=== PATIENT | male | born 1930 | race Caucasian/White ===

== ENCOUNTER 2017-06-04 08:32 | Emergency (ER) | payer MEDICARE, MEDICAID ==
--- NOTE | 2017-06-04 08:57 | ER Document Report ---
ED General - General Chief Complaint: Chest Pain Stated Complaint: CHEST PAIN Time Seen by Provider: 06/04/17 08:46 Mode of Arrival: Ambulatory Information source: Patient, Relative TRAVEL OUTSIDE OF THE [place] IN LAST 30 DAYS: No - HPI Onset: This morning Quality of pain: No pain Associated symptoms: Nonproductive cough, Shortness of breath Exacerbated by: Denies Relieved by: Denies Similar symptoms previously: No Recently seen / treated by doctor: Yes Notes: Patient is a very functional 86-year-old male who presents with cough and congestion. Patient was seen by his primary care doctor this morning and was told to come to the emergency department. Patient complains of cough, painful deep breaths, fevers to 100. Eating and drinking without difficulty. No known ill contacts. - Related Data Allergies/Adverse Reactions: aspirin Adverse Reaction (Verified 06/04/17 09:23) Past Medical History - General Information source: Patient, Relative - Social History Smoking Status: Never Smoker Family History: Reviewed & Not Pertinent Patient has suicidal ideation: No Patient has homicidal ideation: No - Past Medical History Cardiac Medical History: Reports: Hx Hypertension Denies: Hx Heart Attack Pulmonary Medical History: Denies: Hx Asthma Neurological Medical History: Denies: Hx Cerebrovascular Accident, Hx Seizures Renal/ Medical History: Denies: Hx Peritoneal Dialysis GI Medical History: Denies: Hx Hepatitis, Hx Hiatal Hernia, Hx Ulcer Infectious Medical History: Denies: Hx Hepatitis Past Surgical History: Denies: Hx Open Heart Surgery, Hx Pacemaker Review of Systems - Review of Systems Respiratory: Cough, Hurts to breathe -: Yes All other systems reviewed and negative Physical Exam - Vital signs Vitals: Temp Pulse Resp BP Pulse Ox 98.5 F 97 18 132/55 H 93 06/04/17 08:35 06/04/17 08:35 06/04/17 08:35 06/04/17 08:35 06/04/17 08:35 Interpretation: Normal - General General appearance: Appears well, Alert Notes: Patient ambulated to treatment room without any difficulty. He does not appear to be short of breath. - HEENT Head: Normocephalic, Atraumatic Eyes: Normal Pupils: PERRL - Respiratory Respiratory status: No respiratory distress Chest status: Nontender Breath sounds: Normal Chest palpation: Normal - Cardiovascular Rhythm: Regular Heart sounds: Normal auscultation Murmur: No - Abdominal Inspection: Normal Distension: No distension Bowel sounds: Normal Tenderness: Nontender Organomegaly: No organomegaly - Back Back: Normal, Nontender - Extremities General upper extremity: Normal inspection, Nontender, Normal color, Normal ROM , Normal temperature General lower extremity: Normal inspection, Nontender, Normal color, Normal ROM , Normal temperature, Normal weight bearing. No: Migel's sign - Neurological Neuro grossly intact: Yes Cognition: Normal Orientation: AAOx4 [place] Coma Scale Eye Opening: Spontaneous [place] Coma Scale Verbal: Oriented [place] Coma Scale Motor: Obeys Commands [place] Coma Scale Total: 15 Speech: Normal Motor strength normal: LUE, RUE, LLE, RLE Sensory: Normal - Psychological Associated symptoms: Normal affect, Normal mood - Skin Skin Temperature: Warm Skin Moisture: Dry Skin Color: Normal Course - Re-evaluation Re-evalutation: 06/04/17 09:56 Emergency department workup fairly unremarkable. Slight uptake in white count noted. We will treat for acute bronchitis. Results reviewed with patient and family at bedside. - Vital Signs Vital signs: Temp Pulse Resp BP Pulse Ox 98.5 F 97 25 H 136/63 H 96 06/04/17 08:35 06/04/17 08:35 06/04/17 09:01 06/04/17 09:00 06/04/17 09:01 - Laboratory Result Diagrams: 06/04/17 08:55 06/04/17 08:55 Laboratory results interpreted by me: 06/04/17 06/04/17 08:55 08:55 WBC 17.9 H Hgb 11.3 L Hct 35.0 L MCV 73 L MCH 23.3 L RDW 21.5 H Seg Neuts % (Manual) 88 H Lymphocytes % (Manual) 4 L Abs Neuts (Manual) 15.8 H Sodium 133.1 L Chloride 92 L Carbon Dioxide 32 H - Diagnostic Test Radiology reviewed: Reports reviewed Radiology results interpreted by me: 06/04/17 09:56 Nothing acute per radiologist - EKG Interpretation by Me EKG shows normal: Sinus rhythm Rate: Normal Rhythm: NSR - 98 [place]/QRS: RBBB When compared to previous EKG there are: Previous EKG unavailable Discharge - Discharge Clinical Impression: Acute bronchitis Disposition: HOME, SELF-CARE Instructions: Bronchitis ([facility]) Additional Instructions: Follow-up with your primary care doctor. Return to the emergency department if worse or for any other problems. Prescriptions: Benzonatate [Tessalon Perles 100 mg Capsule] 100 mg PO Q8HP PRN #30 capsule PRN Reason: Cough Azithromycin [Zithromax 250 mg Tablet] 250 mg PO ASDIR PRN #6 tablet PRN Reason:
[2017-06-04 09:19] LABS: HEMOGLOBIN 11.3 g/dL (13.5-17.0); HGB HCT DIFFERENCE -1.1; MEAN CORPUSCULAR HEMOGLOBIN 23.3 pg (27.0-33.4); MEAN CORPUSCULAR HGB CONC 32.1 g/dL (32.0-36.0); MEAN CORPUSCULAR VOLUME 73 fl (80-97); RED BLOOD COUNT 4.82 10^6/uL (4.35-5.55); RED CELL DISTRIBUTION WIDTH 21.5 % (11.5-14.0); WHITE BLOOD COUNT 17.9 10^3/uL (4.0-10.5)
[2017-06-04 09:26] VITALS: BP 136/63
[2017-06-04 09:35] LABS: BASOPHILS % (MANUAL) 1 % (0-2); EOSINOPHILS % (MANUAL) 0 % (0-6); LYMPHOCYTES % (MANUAL) 4 % (13-45); TOTAL CELLS COUNTED 100
[2017-06-04 09:37] LABS: ANISOCYTOSIS 2+; HYPOCHROMASIA 2+; MICROCYTOSIS 2+; POIKILOCYTOSIS 1+; POLYCHROMASIA SLIGHT
[2017-06-04 09:38] LABS: ALANINE AMINOTRANSFERASE 26 U/L (21-72); ALKALINE PHOSPHATASE 103 U/L (38-126); ANION GAP 9 (5-19); ASPARTATE AMINO TRANSFERASE 22 U/L (17-59); BILIRUBIN,DIRECT 0.4 mg/dL (0.0-0.4); BILIRUBIN,TOTAL 0.8 mg/dL (0.2-1.3); BLOOD UREA NITROGEN 11 mg/dL (7-20); CALCIUM 9.5 mg/dL (8.4-10.2); CARBON DIOXIDE 32 mmol/L (22-30); CHLORIDE 92 mmol/L (98-107); GLUCOSE 95 mg/dL (75-110); HELMET CELLS SLIGHT; PLATELET CLUMPS PRESENT; POTASSIUM 4.6 mmol/L (3.6-5.0); SODIUM 133.1 mmol/L (137-145); TARGET CELLS SLIGHT; TEAR DROP CELLS SLIGHT; TOTAL PROTEIN 6.8 g/dL (6.3-8.2)
--- NOTE | 2017-06-04 09:40 | RADIOLOGY REPORT (SQ) ---
EXAM DESCRIPTION: CHEST SINGLE VIEW COMPLETED DATE/TIME: 06/04/2017 9:26 am REASON FOR STUDY: cough COMPARISON: None. NUMBER OF VIEWS: One view. TECHNIQUE: Single frontal radiographic view of the chest acquired. LIMITATIONS: None. FINDINGS: LUNGS AND PLEURA: No opacities, masses or pneumothorax. No pleural effusion. Attenuated bl ood vessels and flattened jelly-diaphragms. MEDIASTINUM AND HILAR STRUCTURES: No masses. HEART AND VASCULAR STRUCTURES: Heart normal in size. Tortuous aorta. BONES: No acute findings. HARDWARE: None in the chest. OTHER: No other significant finding. IMPRESSION: COPD. NO ACUTE RADIOGRAPHIC FINDING IN THE CHEST. TECHNICAL DOCUMENTATION: JOB ID: [id number] [employer]- All Rights Reserved
--- NOTE | 2017-06-04 13:37 | EKG REPORT ---
SEVERITY:- ABNORMAL ECG - SINUS RHYTHM RIGHT BUNDLE BRANCH BLOCK : Confirmed by: Jeni Romero 04-Jun-2017 13:36:40
== END 2017-06-04 10:27 | disposition home or self-care (01) ==
LOC: ER 08:32
DX: J20.9 Acute bronchitis, unspecified (principal); R07.9 Chest pain, unspecified; R05 Cough; R06.02 Shortness of breath; R09.81 Nasal congestion; R50.9 Fever, unspecified
CPT/HCPCS: 36415; 71010; 80053; 84484; 85025; 87040; 93005; 93010; 99285

== ENCOUNTER → 2018-10-24 | Outpatient (CLI) | payer MEDICARE, MEDICAID ==
[2018-10-24 10:31] LABS: ALANINE AMINOTRANSFERASE 22 U/L (21-72); ALBUMIN 4.2 g/dL (3.5-5.0); ALKALINE PHOSPHATASE 90 U/L (38-126); ANION GAP 8 (5-19); ASPARTATE AMINO TRANSFERASE 24 U/L (17-59); BILIRUBIN,DIRECT 0.2 mg/dL (0.0-0.4); BILIRUBIN,TOTAL 0.4 mg/dL (0.2-1.3); BLOOD UREA NITROGEN 14 mg/dL (7-20); CALCIUM 9.6 mg/dL (8.4-10.2); CARBON DIOXIDE 31 mmol/L (22-30); CHLORIDE 97 mmol/L (98-107); CHOLESTEROL 147.91 mg/dL (0-200); GLUCOSE 94 mg/dL (75-110); POTASSIUM 4.8 mmol/L (3.6-5.0); SODIUM 135.5 mmol/L (137-145); TOTAL PROTEIN 6.8 g/dL (6.3-8.2); TRIGLYCERIDES 144 mg/dL (<150)
[2018-10-24 10:42] LABS: DIRECT LDL 78 mg/dL (<100)
== END ==
LOC: OD 09:15
PROVIDERS: ATTEND Internal Medicine
DX: R94.31 Abnormal electrocardiogram [ECG] [EKG] (principal); R06.02 Shortness of breath; I35.1 Nonrheumatic aortic (valve) insufficiency; I35.0 Nonrheumatic aortic (valve) stenosis; I10 Essential (primary) hypertension; I34.0 Nonrheumatic mitral (valve) insufficiency; I36.1 Nonrheumatic tricuspid (valve) insufficiency; I65.23 Occlusion and stenosis of bilateral carotid arteries; R01.1 Cardiac murmur, unspecified
CPT/HCPCS: 36415; 80053; 80061

== ENCOUNTER → 2019-05-09 | Outpatient (CLI) | payer MEDICARE, MEDICAID ==
--- NOTE | 2019-05-09 12:44 | RADIOLOGY REPORT (SQ) ---
EXAM DESCRIPTION: BARIUM SWALLOW ESOPHAGUS COMPLETED DATE/TIME: 05/09/2019 10:11 am REASON FOR STUDY: R13.10 DYSPHAGIA, UNSPECIFIED, K22.5 DIVERTICULUM OF ESOPHAGUS, ACQUIRED R13.10 D YSPHAGIA, UNSPECIFIED K22.5 DIVERTICULUM OF ESOPHAGUS, ACQUIRED COMPARISON: None. TECHNIQUE: Under fluoroscopic guidance, patient ingested effervescent granules followed by thick and thin barium. Fluoroscopic spot images and routine radiographic images acquired and stored on PACS. 12 MM BARIUM TABLET GIVEN: Yes. 10 minutes delay in passage the 12 mm barium tablet across the GE junction proximal to the hiatal her cheryl. LIMITATIONS: None. FLUOROSCOPY TIME: FLUORO TIME: 2.4 minutes of fluoroscopy was used. 18 images saved to PACS. FINDINGS: NEUROMUSCULAR COORDINATION OF SWALLOW: Normal. No aspiration. Moderate cricopharyngeal hy pertrophy. 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 ESOPHAGEAL MOTILITY: Motility in the proximal esophagus is unremarkable. Mild esophageal spasms in t he distal esophagus. ESOPHAGEAL MUCOSA: Normal mucosa without masses or ulceration. GASTRO-ESOPHAGEAL JUNCTION: There is a large fixed 9.3 x 5.3 cm hiatal hernia. Mild gastroesophageal reflux seen. NON-GI TRACT STRUCTURES: No significant finding. OTHER: No other significant finding. IMPRESSION: 1. 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 2. LARGE HIATAL HERNIA WITH MILD GASTROESOPHAGEAL REFLUX. DISTAL ESOPHAGEAL STRICTURE AND SPASM WHI CH DOES DELAY PASSAGE OF A 12 MM BARIUM TABLET FOR APPROXIMATELY 10 MINUTES. COMMENT: Quality ID [id number]: Final reports for procedures using fluoroscopy that document radiation exp osure indices, or exposure time and number of fluorographic images (if radiation exposure indices are not available) TECHNICAL DOCUMENTATION: JOB ID: [id number] [employer]- All Rights Reserved Reading location - IP/workstation name: [email or web address]
== END ==
LOC: RAD 09:11
PROVIDERS: ATTEND Internal Medicine Gastroenterology
DX: K22.5 Diverticulum of esophagus, acquired (principal); K44.9 Diaphragmatic hernia without obstruction or gangrene; K21.9 Gastro-esophageal reflux disease without esophagitis; R13.10 Dysphagia, unspecified
CPT/HCPCS: 74220

== ENCOUNTER → 2019-06-05 | Outpatient (CLI) | payer MEDICARE, MEDICAID ==
--- NOTE | 2019-06-07 | XCELERA REPORT ---
[address] [address] Transthoracic Echocardiogram Report Name: ANA RICARDO Age: 88 yrs Gender: Male : 1930 Patient Status: Outpatient Patient Location: [facility] Study Date: 06/05/2019 10:45 AM Height: 67 in Weight: 127 lb BSA: 1.7 m2 Procedure: A two-dimensional transthoracic echocardiogram with color flow and Doppler was performed. Study Quality: Fair. Reason For Study: SOB PRE OP History: SOB PRE OP. Ordering Physician: ASHLY ARNETT Performed By: Dyana Richards Interpretation Summary The left ventricle is normal in size. There is normal left ventricular wall thickness. LV EF is 65% Left ventricular systolic function is normal. Doppler measurements suggest normal left ventricular diastolic function The left ventricular wall motion is normal. There is no thrombus. There is no ventricular septal defect visualized. The right ventricle is mildly dilated. The right ventricular systolic function is normal. The right atrium is borderline dilated. The interatrial septum is intact with no evidence for an atrial septal defect. There is no Doppler evidence for an interatrial shunt There is mild mitral annular calcification. There is no evidence of mitral valve prolapse. There is no vegetation seen on the mitral valve. There is no mitral valve stenosis. There is a mild amount of mitral regurgitation There is no aortic valvular vegetation. There is mild aortic stenosis There is a peak gradient of 23.4 mm of Hg , and a mean graient of 11.7 mm of Hg. No hemodynamically significant valvular aortic stenosis. There is no LVOT obstruction. There is a mild amount of aortic regurgitation There is no tricuspid stenosis. There is mild pulmonary hypertension by echo There is a moderate amount of tricuspid regurgitation RVSP is 38 to 43 mm of Hg , with RA mean of 5 to 10. There is no pulmonic valvular stenosis. There is a mild amount of pulmonic regurgitation The aortic root is normal size. The inferior vena cava appeared normal and decreased > 50% with respiration (RAP 5-10 mmHg) There is no pericardial effusion. MMode/2D Measurements & Calculations RVDd: 3.8 cm LVIDd: 5.4 cm FS: 34.0 % Ao root diam: 3.3 cm IVSd: 0.63 cm LVIDs: 3.5 cm EDV(Teich): 138.5 ml Ao root area: 8.4 cm2 LVPWd: 0.75 cm ESV(Teich): 52.0 ml EF(Teich): 62.4 % LVOT diam: 2.0 cm LVOT area: 3.1 cm2 Doppler Measurements & Calculations MV E max frida: MV dec slope: Ao V2 max: AI max frida: 63.7 cm/sec 362.5 cm/sec2 241.7 cm/sec 406.3 cm/sec MV A max frida: MV dec time: Ao max PG: AI max P.0 mmHg 61.9 cm/sec 0.18 sec 23.4 mmHg AI dec slope: MV E/A: 1.0 Ao V2 mean: 203.4 cm/sec2 157.4 cm/sec AI P1/2t: 585.1 msec Ao mean P.7 mmHg Ao V2 VTI: 41.8 cm ARRON(I,D): 1.4 cm2 ARRON(V,D): 1.5 cm2 LV V1 max PG: SV(LVOT): 58.5 ml PA V2 max: PI end-d frida: 5.4 mmHg 93.1 cm/sec 113.0 cm/sec LV V1 mean PG: PA max P.5 mmHg 3.5 mmHg LV V1 max: 116.3 cm/sec LV V1 mean: 71.7 cm/sec LV V1 VTI: 19.0 cm TR max frida: 284.7 cm/sec TR max P.5 mmHg Left Ventricle The left ventricle is normal in size. There is normal left ventricular wall thickness. LV EF is 65%. Left ventricular systolic function is normal. Doppler measurements suggest normal left ventricular diastolic function. The left ventricular wall motion is normal. There is no thrombus. There is no ventricular septal defect visualized. Right Ventricle The right ventricle is mildly dilated. The right ventricular systolic function is normal. Atria The right atrium is borderline dilated. The left atrial size is normal. The interatrial septum is intact with no evidence for an atrial septal defect. There is no Doppler evidence for an interatrial shunt. Mitral Valve There is mild mitral annular calcification. There is no evidence of mitral valve prolapse. There is no vegetation seen on the mitral valve. There is no mitral valve stenosis. There is a mild amount of mitral regurgitation. Aortic Valve There is no aortic valvular vegetation. There is mild aortic stenosis. There is a peak gradient of 23.4 mm of Hg , and a mean graient of 11.7 mm of Hg. No hemodynamically significant valvular aortic stenosis. There is no LVOT obstruction. There is a mild amount of aortic regurgitation. Tricuspid Valve There is no tricuspid stenosis. There is mild pulmonary hypertension by echo. There is a moderate amount of tricuspid regurgitation. RVSP is 38 to 43 mm of Hg , with RA mean of 5 to 10. Pulmonic Valve There is no pulmonic valvular stenosis. There is a mild amount of pulmonic regurgitation. Great Vessels The aortic root is normal size. The inferior vena cava appeared normal and decreased > 50% with respiration (RAP 5-10 mmHg). Effusions There is no pericardial effusion. : ASHLY ARNETT Lakshmi
== END ==
LOC: SP 09:53
PROVIDERS: ATTEND Specialist
DX: Z01.810 Encounter for preprocedural cardiovascular examination (principal); R06.02 Shortness of breath
CPT/HCPCS: 93306

== ENCOUNTER → 2019-06-06 | Outpatient (CLI) | payer MEDICARE, MEDICAID ==
[~2019-06-06] MED LIST: REGADENOSON INJ 0.4 MG/5 ML DISP.SYRIN IV ONE
--- NOTE | 2019-06-06 18:44 | DRAGON STRESS TEST REPORT ---
Intravenous Lexiscan Cardiolite stress test using single photon emmision computerized tomography. Date of procedure: 06/06/2019.Ordering Provider: Dr.Lakshmi Arnett. Patient's status: Out Patient. Indication: Shortness of breath, abnormal EKG, and preoperative cardiac risk assessment.. Coronary risk factors: Age, hypertension, history of coronary artery disease, dyslipidemia, and tobacco abuse disorder. Resting EKG: Sinus Rhythm. Right Bundle Branch Block. Stress EKG: No changes of ischemia. The patient had no chest pain or discomfort, and there were no arrhythmias seen. Reason for termination: Protocol. Conclusions: Normal EKG and hemodynamic response to IV Lexiscan. Nuclear data: At rest the patient was given 10.74 millicuries of technetium 99m sestamibi injected intravenously. As per protocol rest non gated SPECT images were obtained. Subsequently the patient was given intravenous Lexiscan at a dose of 0.4 mg in 5 mL intravenously, followed by flush with normal saline. Subsequently the stress dose of 32.1 millicuries of technetium 99m sestamibi was injected intravenously. As per protocol stress gated images were obtained. Nuclear interpretation: Review of images showed that all segments of the myocardium had normal perfusion at rest, and normal perfusion post stress with IV Lexiscan. All segments of the myocardium had normal motion, contraction, and thickening by gated study. T. I D. ratio was normal at 0.64. There is no transient ischemic dilatation of the left ventricle. Computer read rest, and stress left ventricular ejection fraction were 58 %, and 64 %, respectively. Conclusion: 1. There is no scintigraphic evidence of Lexiscan induced myocardial ischemia. 2. There is no scintigraphic evidence of myocardial infarction/scar. Recommendations: Aggressive risk factor modification, and treating the underlying co- morbidities. MTDD
== END ==
LOC: RAD 12:01
PROVIDERS: ATTEND Specialist
DX: Z01.810 Encounter for preprocedural cardiovascular examination (principal); R06.02 Shortness of breath; I10 Essential (primary) hypertension; I25.10 Atherosclerotic heart disease of native coronary artery without angina pectoris; E78.5 Hyperlipidemia, unspecified; Z72.0 Tobacco use; I45.10 Unspecified right bundle-branch block
CPT/HCPCS: 93017; 78452; A9500; J2785; Q9969

== ENCOUNTER 2019-06-21 07:47 | Day surgery (SDC) | payer MEDICARE, MEDICAID ==
[2019-06-15 11:03] LABS: ABSOLUTE BASOPHILS # (AUTO) 0.1 10^3/uL (0.0-0.2); ABSOLUTE EOSINOPHILS # (AUTO) 0.1 10^3/uL (0.0-0.6); ABSOLUTE LYMPHOCYTES (AUTO) 0.8 10^3/uL (0.5-4.7); ABSOLUTE NEUT (AUTO) 4.4 10^3/uL (1.7-8.2); BASOPHILS % (AUTO) 1.2 % (0-2); EOSINOPHILS % (AUTO) 1.5 % (0-6); HEMATOCRIT 38.1 % (37.9-51.0); HEMOGLOBIN 12.6 g/dL (13.5-17.0); LYMPHOCYTES % (AUTO) 12.8 % (13-45); MEAN CORPUSCULAR HEMOGLOBIN 26.9 pg (27.0-33.4); MEAN CORPUSCULAR VOLUME 81 fl (80-97); PLATELET COUNT 457 10^3/uL (150-450); RED BLOOD COUNT 4.68 10^6/uL (4.35-5.55); SEGMENTED NEUTROPHILS % (AUTO) 69.5 % (42-78); TOTAL CELLS COUNTED % (AUTO) 100 %; WHITE BLOOD COUNT 6.3 10^3/uL (4.0-10.5)
[2019-06-15 11:18] LABS: ANION GAP 5 (5-19); BLOOD UREA NITROGEN 16 mg/dL (7-20); CALCIUM 9.5 mg/dL (8.4-10.2); CARBON DIOXIDE 34 mmol/L (22-30); CHLORIDE 97 mmol/L (98-107); GLUCOSE 87 mg/dL (75-110); POTASSIUM 4.6 mmol/L (3.6-5.0)
[~2019-06-21 07:47] MED LIST changes: +CEFAZOLIN SODIUM 1 GM in DEXTROSE 5%-WATER 50 ML IV PRN; +FENTANYL CITRATE INJ/PF 100 MCG/2 ML AMPUL ONE; +HYDROMORPHONE HCL INJ/PF 2 MG/ML AMPULE ONE; +LACTATED RINGERS 1000 ML IV PRN; +MIDAZOLAM 2 MG/2 ML INJ ONE; +PROPOFOL INJ 200 MG/20 ML VIAL IV ONE; -REGADENOSON INJ 0.4 MG/5 ML DISP.SYRIN IV ONE
[2019-06-21] MEDS ORDERED: PHENYLEPHRINE HCL INJ/PF 10 MG/1 ML SDV ONE (08:00)
[2019-06-21] MEDS ORDERED: GLYCOPYRROLATE 1 MG/5 ML VIAL ONE (08:00)
[2019-06-21] MEDS ORDERED: ROCURONIUM BROMIDE INJ 50 MG/5 ML VIAL IV ONE (08:00)
[2019-06-21] MEDS ORDERED: DEXAMETHASONE SOD PHOSPHATE INJ 4 MG/1 ML VIAL ONE (08:00)
[2019-06-21] MEDS ORDERED: ONDANSETRON HCL INJ/PF 4 MG/2 ML SDV ONE (08:00)
[2019-06-21] MEDS ORDERED: OXYCODONE-ACETAMINOPHEN 5-325 MG TABLET PO PRN ×2 (11:49)
[2019-06-21] MEDS ORDERED: FENTANYL CITRATE INJ/PF 100 MCG/2 ML AMPUL IV PRN ×3 (11:49)
[2019-06-21] MEDS ORDERED: ONDANSETRON HCL INJ/PF 4 MG/2 ML SDV IV PRN ×2 (11:49→12:24)
[2019-06-21] MEDS ORDERED: MEPERIDINE HCL/PF INJ 25 MG/1 ML DISP.SYRIN IV PRN (11:49)
[2019-06-21] MEDS ORDERED: DIPHENHYDRAMINE HCL 50 MG/ML VIAL IV PRN (11:49)
[2019-06-21] MEDS ORDERED: MORPHINE SULFATE 10 MG/ML INJ IV PRN (11:49)
--- NOTE | 2019-06-21 12:39 | Operative Report ---
Nonrecallable Operative Report PREOPERATIVE DIAGNOSIS: Zenker's diverticulum POSTOPERATIVE DIAGNOSIS: Zenker's diverticulum OPERATION: Esophagoscopy with Zenker's diverticulectomy SURGEON: WEI LARA HUMAN RESOURCES LEADER: MACKENZIE GUZMAN ANESTHESIA: GA TISSUE REMOVED OR ALTERED: Zenker's diverticulum COMPLICATIONS: None ESTIMATED BLOOD LOSS: 5 cc INTRAOPERATIVE FINDINGS: See dictation PROCEDURE: Patient was brought to the operating room and awake and alert in stable condition placed on the operating table in supine position induced under general anesthesia and intubated after appropriate timeout and site verification the procedure commenced. The Olympus esophagoscope was placed into the posterior pharynx and easily passed down the esophagus to the GE junction it was then slowly withdrawn and examination of the esophagus revealed to be normal at approximately 18 cm we noted the ostia of the diverticulum on the left side of the esophagus it was not filled with food and therefore did not even need irrigation. The scope was then removed. A 56 [place]anese bougie dilator will was placed into the posterior pharynx and down the esophagus for help with maintaining a normal contour of the esophagus. After appropriate prep and drape of the neck a longitudinal incision was made along the edge of the sternocleidomastoid muscle. The platysma muscle was divided with Bovie cautery and we entered the deep cervical fascia which was incised with Bovie cautery until we identified the carotid sheath. The omohyoid muscle was divided with Bovie cautery once this was done we placed a wheat [place] for retraction and identified the thyroid gland which was placed on traction we first identified the recurrent laryngeal nerve and protected that. The thyroid gland was then mobilized slightly medially and inferior thyroid artery was divided between 3-0 silk ligatures. Once this was done we identified the top portion of the esophagus and the diverticulum in the posterior position. An Allis clamp was placed on the apex of the diverticulum to maintain traction. Using blunt dissection using peanut dissector the muscle tissue was dissected away from the diverticulum to we identified the neck of the diverticulum and Temelec's triangle. Then using a tonsil clamp I gently lifted the cricopharyngeus muscle away from the diverticulum and using Bovie cautery divided that muscle. Once this was accomplished we then came across the base of the diverticulum with one firing of the TA 30 stapler with a blue load. This led to a clean secure staple line. We then removed the bougie dilator we placed a Hamilton drain next to the closure and the esophageal bed and brought it out through a stab wound on the left anterior chest wall we then closed the platysma muscle with interrupted 3-0 Vicryl sutures and closed the skin with intracuticular 4-0 Biosyn Steri-Strips completed the procedure estimated blood loss was less than 10 cc sponge needle counts were correct x2 the patient was awakened in the operating extubated transferred recovery in stable condition no complications Mackenzie SORTO was present for the entire procedure help with wound retraction wound closure
[2019-06-21] MEDS ORDERED: ACETAMINOPHEN 1,000 MG/100 ML RTUPB IV ONE (13:37)
[2019-06-21] MEDS ORDERED: FENTANYL CITRATE INJ/PF 100 MCG/2 ML AMPUL ONE (14:14)
[2019-06-21] MEDS: POTASSI CL 20 MEQ/D5-1/2NS 1L 1,000 ML IV PRN (15:37)
[2019-06-21] MEDS ORDERED: TAMSULOSIN HCL 0.4 MG CAP.SR.24H PO SCH (18:00)
[2019-06-21] MEDS: MORPHINE SULFATE 10 MG/ML INJ IV PRN (19:19)
[2019-06-21] MEDS ORDERED: FAMOTIDINE INJ/PF 20 MG/2 ML SDV IV SCH (22:00)
[2019-06-22 06:28] LABS: HEMATOCRIT 31.1 % (37.9-51.0); HEMOGLOBIN 10.1 g/dL (13.5-17.0); MEAN CORPUSCULAR HEMOGLOBIN 26.2 pg (27.0-33.4); MEAN CORPUSCULAR HGB CONC 32.4 g/dL (32.0-36.0); MEAN CORPUSCULAR VOLUME 81 fl (80-97); PLATELET COUNT 308 10^3/uL (150-450); RED BLOOD COUNT 3.84 10^6/uL (4.35-5.55); RED CELL DISTRIBUTION WIDTH 17.9 % (11.5-14.0); WHITE BLOOD COUNT 15.1 10^3/uL (4.0-10.5)
[2019-06-22] MEDS: MORPHINE SULFATE 10 MG/ML INJ IV PRN (06:29)
[2019-06-22] MEDS: POTASSI CL 20 MEQ/D5-1/2NS 1L 1,000 ML IV PRN (06:29)
[2019-06-22 06:49] LABS: BLOOD UREA NITROGEN 13 mg/dL (7-20); CALCIUM 8.5 mg/dL (8.4-10.2); CHLORIDE 101 mmol/L (98-107); GLUCOSE 98 mg/dL (75-110); POTASSIUM 4.2 mmol/L (3.6-5.0)
[2019-06-22 06:58] LABS: CARBON DIOXIDE 31 mmol/L (22-30)
[2019-06-22 07:08] LABS: ABSOLUTE LYMPHOCYTES# (MANUAL) 0.8 10^3/uL (0.5-4.7); ABSOLUTE MONOCYTES # (MANUAL) 0.9 10^3/uL (0.1-1.4); ANISOCYTOSIS 1+; BAND NEUTROPHILS % (MANUAL) 1 % (3-5); BASOPHILS % (MANUAL) 0 % (0-2); EOSINOPHILS % (MANUAL) 0 % (0-6); LYMPHOCYTES % (MANUAL) 5 % (13-45); MONOCYTES % (MANUAL) 6 % (3-13); PLATELET COMMENT ADEQUATE; SEGMENTED NEUTROPHILS % (MAN) 88 % (42-78); TOTAL CELLS COUNTED 100
[2019-06-22 07:24] LABS: ANION GAP 3 (5-19)
--- NOTE | 2019-06-22 08:22 | PDOC DISCHARGE SUMMARY ---
General - Admit/Disc Date/PCP Admission Date/Primary Care Provider: SHADE VANN PA-C Discharge Date: 06/22/19 - Discharge Diagnosis Final Diagnosis: zenkers diverticulum - Assessment Summary: Patient was admitted to [facility] after a Zenker's diverticulum excision for observation. Overnight he did well he was started on a clear liquid diet immediately postop and tolerated well throughout the day and evening. Following morning he is afebrile stable vital signs tolerating clear liquid diet and ready for discharge home He is instructed to advance to a full liquid diet at home he has a drain in place which will be covered with a sterile gauze and change to once a day he will follow-up in surgery clinic 1 week for drain removal He is to resume his regular medications at home no discharge medication will be given - Additional Information Resuscitation Status: Full Code Discharge Diet: As Tolerated, Full Liquids Discharge Activity: Activity As Tolerated - Follow-up with Tiffany in surgery clinic in 1 week Referrals: WEI POSEY MD [ACTIVE STAFF] - 06/27/19 10:45 am () Home Medications: Pravastatin Sodium 20 mg PO QHS 08/28/15 Tamsulosin HCl 0.4 mg PO QHS 08/28/15 Cetirizine HCl [Zyrtec 10 mg Tablet] 1 tab PO QHS 06/15/19 Hydrochlorothiazide 1 tab PO QHS 06/15/19 Losartan Potassium 1 tab PO QHS 06/15/19 History of Present Illiness History of Present Illness: ANA RICARDO is a 88 year old male Physical Exam Vital Signs: Temp Pulse Resp BP Pulse Ox 99.2 F 103 H 15 108/53 L 95 06/21/19 23:00 06/21/19 23:00 06/21/19 23:00 06/21/19 23:00 06/21/19 23:00 Intake & Output 06/21/19 06/22/19 06/23/19 06:59 06:59 06:59 Intake Total 16949 Output Total 10 Balance 15101 Weight 58.4 kg Results Laboratory Results: WBC 15.1 10^3/uL (4.0-10.5) H 06/22/19 05:13 RBC 3.84 10^6/uL (4.35-5.55) L 06/22/19 05:13 Hgb 10.1 g/dL (13.5-17.0) L 06/22/19 05:13 Hct 31.1 % (37.9-51.0) L 06/22/19 05:13 MCV 81 fl (80-97) 06/22/19 05:13 MCH 26.2 pg (27.0-33.4) L 06/22/19 05:13 MCHC 32.4 g/dL (32.0-36.0) 06/22/19 05:13 RDW 17.9 % (11.5-14.0) H 06/22/19 05:13 Plt Count 308 10^3/uL (150-450) 06/22/19 05:13 Lymph % (Auto) Not Reportable 06/22/19 05:13 [place] % (Auto) Not Reportable 06/22/19 05:13 Eos % (Auto) Not Reportable 06/22/19 05:13 Baso % (Auto) Not Reportable 06/22/19 05:13 Absolute Neuts (auto) Not Reportable 06/22/19 05:13 Absolute Lymphs (auto) Not Reportable 06/22/19 05:13 Absolute Monos (auto) Not Reportable 06/22/19 05:13 Absolute Eos (auto) Not Reportable 06/22/19 05:13 Absolute Basos (auto) Not Reportable 06/22/19 05:13 Total Counted 100 06/22/19 05:13 Seg Neutrophils % Not Reportable 06/22/19 05:13 Seg Neuts % (Manual) 88 % (42-78) H 06/22/19 05:13 Band Neutrophils % 1 % (3-5) L 06/22/19 05:13 Lymphocytes % (Manual) 5 % (13-45) L 06/22/19 05:13 Monocytes % (Manual) 6 % (3-13) 06/22/19 05:13 Eosinophils % (Manual) 0 % (0-6) 06/22/19 05:13 Basophils % (Manual) 0 % (0-2) 06/22/19 05:13 Abs Neuts (Manual) 13.4 10^3/uL (1.7-8.2) H 06/22/19 05:13 Abs Lymphs (Manual) 0.8 10^3/uL (0.5-4.7) 06/22/19 05:13 Abs Monocytes (Manual) 0.9 10^3/uL (0.1-1.4) 06/22/19 05:13 Absolute Eos (Manual) 0.0 10^3/uL (0.0-0.6) 06/22/19 05:13 Abs Basophils (Manual) 0.0 10^3/uL (0.0-0.2) 06/22/19 05:13 Platelet Comment ADEQUATE 06/22/19 05:13 Anisocytosis 1+ 06/22/19 05:13 Sodium 134.8 mmol/L (137-145) L 06/22/19 05:13 Potassium 4.2 mmol/L (3.6-5.0) 06/22/19 05:13 Chloride 101 mmol/L (98-107) 06/22/19 05:13 Carbon Dioxide 31 mmol/L (22-30) H 06/22/19 05:13 Anion Gap 3 (5-19) L 06/22/19 05:13 BUN 13 mg/dL (7-20) 06/22/19 05:13 Creatinine 0.63 mg/dL (0.52-1.25) 06/22/19 05:13 Est GFR ( Amer) > 60 (>60) 06/22/19 05:13 Est GFR (MDRD) Non-Af > 60 (>60) 06/22/19 05:13 Glucose 98 mg/dL (75-110) 06/22/19 05:13 Calcium 8.5 mg/dL (8.4-10.2) 06/22/19 05:13
[2019-06-22 10:25] VITALS: BP 109/48
== END 2019-06-22 11:09 | disposition home health service (06) ==
LOC: OROUT 07:47 → 4N 12:25 → UNDOADMOB 12:25 → 4N 15:18 → UNDODISOB 06-22 10:09 → OROUT 06-22 11:09
PROVIDERS: ATTEND Surgery
DX: K22.5 Diverticulum of esophagus, acquired (principal); I10 Essential (primary) hypertension; I38 Endocarditis, valve unspecified; Z01.818 Encounter for other preprocedural examination; Z86.73 Personal history of transient ischemic attack (TIA), and cerebral infarction without residual deficits; Z79.899 Other long term (current) drug therapy; Z90.49 Acquired absence of other specified parts of digestive tract
CPT/HCPCS: 43130; 36415 ×3; 84132; 85025 ×2; 80048 ×2; 88305 ×2; 94799; 00320; J2250; J0690; J3490 ×2; J1100; J3010; J2270 ×2; J2370; A9270; J3480 ×2; J2405; J7060; J2704; S0028; J0131; 320; J1170